=== PATIENT | male | born 1960 | race Caucasian/White ===

== ENCOUNTER 2023-12-03 12:33 | Emergency (ER) | payer SELFPAY ==
[2023-12-03 12:38] VITALS: BP 139/92; PULSE 116; RESP 17; TEMP 36.6; O2SAT 98; BMI 31.9
--- NOTE | 2023-12-03 12:40 | ED_ITS ---
HPI - General Adult General Chief complaint: General Medical Stated complaint: Cough/Congestion Time Seen by Provider: 12/03/23 13:52 Source: patient Mode of arrival: ambulatory Limitations: no limitations History of Present Illness ED Provider: VICTOR MANUEL BALL PA-C HPI narrative: 63 year old male with no significant pmhx presents to the ED today for evaluation of congestion, sneezing, dry cough, and bilateral eye irritation x6 days. Admits to gritty sensation to bilateral eyes with clear/watery discharge. No morning crusting. No vision changes. No eye pain or pain with eye movements. He does not wear corrective lenses. Reports symptoms began after he spent the weekend outside moving hay in a very jo[place] environment. He was seen at walk in clinic on Friday (4 days ago) and prescribed erythromycin which he has been applying with little improvement. He has also been taking Claritin D which provides temporary resolution. Denies known sick contacts. Denies fever, chills, sore throat, ear pain, sputum production, shortness of breath, chest pain. Related Data Previous Rx's ?Medication ?Instructions ?Recorded azelastine 0.05 % eye drops 1 drp ophthalmic (eye) BID 1 week 12/03/23 #6 mL benzonatate 100 mg capsule 100 mg PO BID PRN cough #20 caps 12/03/23 Allergies Allergy/AdvReac Type Severity Reaction Status Date / Time amoxicillin [AMOXICILLIN] Allergy Mild BODY Verified 12/03/23 12:42 REDNESS Seasonal Allergies Allergy Unknown Verified 12/03/23 12:42 Review of Systems Review of Systems: Constitutional: No fever, chills, fatigue, night sweats, weight changes ENT/Mouth: No ear pain, hearing loss, nasal congestion, sinus pain, rhinorrhea, sore throa Eyes: No eye pain, swelling, vision changes, +redness, +discharge Cardio: No chest pain, palpitations, [place], orthopnea, peripheral edema Pulm: No SOB,sputum, wheezing, dyspnea, hemoptysis, +cough GI: No nausea, vomiting, hematemesis, abdominal pain, diarrhea, constipation, hematochezia, melena : No irregular bleeding, dysuria, frequency, urgency, hesitancy, hematuria, flank pain, urinary flow changes, urinary incontinence or retention MSK: No back pain, neck pain, joint pain, myalgias Skin: No lesions, rashes Neuro: No weakness, numbness, paresthesias, LOC, dizziness, headache Psych: No anxiety/panic, depression, SI/HI, AH/VH All other systems reviewed and are negative. [facility] Past Medical History Attestation statement: The following information was validated with the patient. Source: old records reviewed and nursing notes reviewed Social History Social History Advance Directives: No Advance Directives Information Provided: Yes Do you have a plan to hurt others: No Plan Physical Exam ED Vital Signs: Vital Signs - 24 hr 12/03/23 12:38 12/03/23 13:56 12/03/23 14:13 Temperature 98 F 98.5 F 98.5 F Pulse Rate 116 H 97 97 Respiratory Rate 17 17 17 Blood Pressure 139/92 H 124/86 124/86 Pulse Oximetry 98 97 97 Oxygen Delivery Method Room Air Room Air Room Air BMI result Body Mass Index 31.9 Patient initially tachycardic, now resolved. Vitals otherwise WNL. Const General: cooperative, healthy appearing, comfortable and no acute distress Orientation/consciousness: patient oriented x3 Limitations: no limitations HENMT Other: + posterior oropharynx without erythema or edema. No tonsillar exudates or peritonsillar masses. Uvula midline. Controlling secretions. Speaking complete sentences. Head: Yes normal to inspection Ears: hearing grossly normal bilaterally General nose exam: Normal external nose present Face and sinus: Yes normal facial exam and Yes sinuses nontender Mouth: Normal oral and palatal mucosa present Eyes Other: + conjunctival injection bilaterally. Minimal amount of chemosis. Cobblestoning noted to bilateral lower eyelids. Excessive tearing noted. No purulent discharge or crusting. No enophthalmos or exophthalmos. EOMs intact without pain or entrapment. + IOP OD 19, IOP OS 18. No reuptake on fluorescein/tetracaine examination. Neck Neck: Yes normal visual inspection, Yes full ROM and Yes no lymphadenopathy Resp Effort & Inspection: normal respiratory effort and able to speak in complete sentences Auscultation: clear to auscultation bilaterally Cardio Rate: regular rate Rhythm: regular rhythm Skin General skin exam: no rashes or lesions noted Neuro General: patient oriented x3 Course Course Course Narrative: 1430-- Patient's physical exam is consistent with allergic conjunctivitits. Cetirizine eyedrops sent to pharmacy for treatment. Will also send Tessalon Perles for cough. Patient has remained stable throughout ED visit today. Discussed worrisome signs and symptoms and when to return to the ED. All questions answered at this time. Patient is agreeable with disposition and stable for discharge. 1625-- received call from pharmacy that they do not have cetirizine eyedrops in stock. azelastine drop sent. Medications Administered Discontinued Medications Generic Name Dose Route Start Last Admin Trade Name Boogie PRN Reason Stop Dose Admin Fluorescein Sodium 1 strip 12/03/23 12:43 12/03/23 13:55 Fluorescein Sodium Strip EYE-BOTH 12/03/23 12:44 1 strip ONCE ONE Administration Tetracaine HCl 1 drop 12/03/23 12:43 12/03/23 13:55 Tetracaine Hcl/Pf 0.5% Oph Ingris 4 Ml Drops EYE-BOTH 12/03/23 12:44 1 drop ONCE ONE Administration Medical Decision Making Medical Decision Making [facility] Narrative: 63 year old male with no significant pmhx presents to the ED today for evaluation of congestion, sneezing, dry cough, and bilateral eye irritation x6 days. Patient initially tachy and hypertensive. Vitals now wnl. Patient is nontoxic-appearing and in no acute distress. On exam, conjunctival injection bilaterally. Minimal amount of chemosis. Cobblestoning noted to bilateral lower eyelids. Excessive tearing noted. No purulent discharge or crusting. No enophthalmos or exophthalmos. EOMs intact without pain or entrapment. IOP OD 19, IOP OS 18. No reuptake on fluorescein/tetracaine examination to indicate abrasion or foreign body. posterior oropharynx without erythema or edema. No tonsillar exudates or peritonsillar masses. Uvula midline. Controlling secretions. Speaking complete sentences. Lungs CTA bilaterally. No wheezes. Actively coughing on exam. Differential diagnosis includes allergic conjunctivitis, viral conjunctivitis, corneal abrasion, corneal foreign body, seasonal allergies, viral syndrome. Unlikely glaucoma, globe rupture, iritis, Plan for viral serology, fluorescein/tetracaine examination, disposition. Differential Diagnosis Differential Diagnoses: The differential diagnosis associated with the presentation includes as above. Admission/Observation Not indicated. Lab Data [facility] Lab Attestation statement: I reviewed the patient's lab results. as above. Labs: Lab Results 12/03/23 Range/Units 12:48 Influenza Type A (PCR) NEGATIVE (Negative) Influenza Type B (PCR) NEGATIVE (Negative) RSV RNA Qual (PCR) NEGATIVE (Negative) SARS-CoV-2 RNA (RT-PCR) NEGATIVE (Negative) Prescription Management I considered prescription management with: Other (azelastine eyedrops) Chronic Conditions Patient?s care impacted by: Other (Seasonal allergies) Social Determinants Patient?s care significantly limited by Social Determinants of Health including: Other Social Determinant of Health Critical Care Time Critical Care Time Critical Care Time: No Discharge Plan Discharge Clinical Impression: Acute allergic conjunctivitis Qualifiers: Laterality: bilateral Qualified Code(s): H10.13 - Acute atopic conjunctivitis, bilateral Patient Disposition: Home, Self-Care Instructions: How to Use Eye Drops (ED), Conjunctivitis (ED) Additional Instructions: You tested negative for covid, flu, and rsv. Your exam is consistent with allergic conjunctivits. Cetirizine eye drops have been sent to your pharmacy for you to take for the next week. Apply 1 drop into eyes twice daily, 8 hours apart. Do not use longer than 2 weeks as this can cause rebound reaction, causing your eyes to become more red/ painful. Follow up with eye doctor. You have been provided a referral. You may call them to make an appointment. they will not call you. Additionally, Ismael Oron[place] have been sent to your pharmacy for you to take as needed for cough. Return new or worsening symptoms. In the case of an emergency call 911. Prescriptions: New benzonatate 100 mg capsule 100 mg PO BID PRN (Reason: cough) Qty: 20 0RF azelastine 0.05 % drops 1 drp ophthalmic (eye) BID 7 Days Qty: 6 0RF Referrals: Pérez Reyes MD [Primary Care Provider] - Sravan Soto [Physician] - Interventions: ED Discharge Assessment Last Done: 12/03/23 14:13 Discharge Date/Time: 12/03/23 14:14 Print Language: Kenyan
[2023-12-03 13:30] LABS: Influenza A PCR NEGATIVE (Negative); Influenza B PCR NEGATIVE (Negative); Resp Syncy Virus RNA Qual PCR NEGATIVE (Negative); SARS COV2 PCR INHOUSE NEGATIVE (Negative)
[2023-12-03] MEDS: Fluorescein Sodium STRIP 1 STRIP EYE-BOTH (13:55)
[2023-12-03] MEDS: Tetracaine HCl/PF 0.5% Oph Sol 4 ML DROPS 1 DROP EYE-BOTH (13:55)
[2023-12-03 13:56] VITALS: BP 124/86; PULSE 97; RESP 17; TEMP 36.9; O2SAT 97
[2023-12-03 14:13] VITALS: BP 124/86; PULSE 97; RESP 17; TEMP 36.9; O2SAT 97
== END 2023-12-03 14:14 | disposition home or self-care (01) ==
PROVIDERS: Physician Assistant Medical; Emergency Provider Emergency Medicine; PCP Internal Medicine
DX: H10.13 Acute atopic conjunctivitis, bilateral (principal); R05.9 Cough, unspecified; R09.89 Other specified symptoms and signs involving the circulatory and respiratory systems; Z03.818 Encounter for observation for suspected exposure to other biological agents ruled out
CPT/HCPCS: 0241U; 99282; 99283

== ENCOUNTER 2024-01-30 07:59 | Emergency (ER) | payer SELFPAY ==
--- NOTE | ~2024-01-30 | US_ITS ---
EXAMINATION: US TRIPLEX LOWER EXTREMITY, RIGHT CLINICAL INFORMATION: Swelling, erythema, pain. COMPARISON: None available. TECHNIQUE: Color-flow triplex imaging with spectral analysis and compression Doppler were performed on the right lower extremity. FINDINGS: Respiratory variation, normal compression and augmented flow are noted throughout the right lower extremity. The visualized common femoral vein, superficial femoral vein, profunda femoral vein, popliteal vein and midcalf posterior tibial venous segments show no evidence of deep venous thrombosis. The peroneal veins were not seen. There is no Martinez's cyst. Enlarged lymph nodes in the right inguinal region with overall a nonaggressive appearing morphology including smooth contour, preserved fatty tolu and normal cortical thickness, most likely reactive in nature largest measuring 2.3 x 0.8 x 1.7 cm. US/US venous duplex LE RT IMPRESSION: 1. No evidence of deep venous thrombosis involving the right lower extremity with the caveat of nonvisualization of the peroneal veins. 2. Enlarged but most likely reactive right inguinal lymph nodes. Attention on follow-up at future examinations recommended. Electronically signed by: Sonja Valdez MD 01/30/2024 11:11 AM EDT
[2024-01-30 08:03] VITALS: BP 145/86; PULSE 110; RESP 16; TEMP 36.9; O2SAT 97; BMI 31.5
[2024-01-30 08:35] LABS: MANUAL DIFF FLAG NO
[2024-01-30 08:37] LABS: Basophils Percent Auto 0.3 % (0-2); Eosinophils Percent Auto 0.3 % (0-4); Hematocrit 43.4 % (42.0-52.0); Hemoglobin 14.9 g/dl (14.0-18.0); Imm Gran Abs Auto 0.05 X10*3/uL (0.00-0.03); Imm Gran Pct Auto 0.4 % (0.0-0.4); Lymphocytes Absolute Auto 1.4 X10*3/uL (1.2-4.9); Lymphocytes Percent Auto 12.1 % (20-40); Mean Corpuscular HGB Conc 34.3 g/dl (31.0-36.0); Mean Corpuscular Hemoglobin 30.2 pg (27.0-33.0); Mean Corpuscular Volume 87.9 fL (80.0-98.0); Mean Platelet Volume 8.2 fL (9.4-12.4); Monocytes Absolute Auto 0.8 X10*3/uL (0.1-1.2); Monocytes Percent Auto 6.6 % (2-11); Neutrophils Absolute Auto 9.6 x10*3/uL (2.0-8.3); Neutrophils Percent Auto 80.3 % (45-73); Platelet Count 168 X10*3/uL (160-400); Red Blood Count 4.94 X10*6/uL (4.60-5.80); White Blood Count 11.9 X10*3/uL (4.8-10.8)
[2024-01-30 08:56] LABS: Alanine Aminotransferase 24 U/L (0-40); Albumin Level 4.2 g/dL (3.5-5.0); Alkaline Phosphatase 50 U/L (39-117); Anion Gap 11 (12-20); Aspartate Amino Transferase 15 U/L (5-37); Bilirubin Total 0.8 mg/dL (0.0-1.0); Blood Urea Nitrogen 11 mg/dL (9-16); Calcium 9.9 mg/dL (8.4-10.2); Carbon Dioxide 26 mmol/L (22-29); Chloride 103 mmol/L (96-108); Creatinine Clr Calc Pharmacy 66.2; Estimated Glomerular Filt Rate > 60; Glucose Random 125 mg/dL (60-115); Sodium 136 mmol/L (135-145); Total Protein 7.9 g/dL (6.5-8.0)
--- NOTE | 2024-01-30 09:18 | ED.GENADULT ---
HPI - General Adult General Chief complaint: Extremity Problem Stated complaint: r leg pain quest cellulitis Time Seen by Provider: 01/30/24 09:12 Source: patient Mode of arrival: ambulatory Limitations: no limitations History of Present Illness ED Provider: Enid Melendez PA-C HPI narrative: Patient is a 63 year old assigned male at with no reported medical history presenting to the emergency department today with right lower leg swelling / redness. Patient states that he has a history of cellulitis and is concerned it has returned. Patient states that it has been worsening over the last few days and spreading up his leg. Patient states that he has no history of blood clots and is not on any anti-coagulation medications. Patient denies any dizziness, lightheadedness, abdominal pain, nausea, vomiting, fever, chills, blurry vision, double vision, loss of vision, chest pain, difficulty breathing, shortness of breath, back pain, night sweats, pain with urination, increased urinary frequency, increased urinary urgency, blood in his urine or stool, syncope or a near syncopal episode, recent trauma or falls, bowel incontinence, bladder incontinence, or any other complaints at this time. Onset (ago): day(s) Location: right and lower extremity Severity: mild Relieving factors: none Exacerbating factors: none Associated symptoms: denies other symptoms Treatments prior to arrival: none Related Data Previous Rx's ?Medication ?Instructions ?Recorded azelastine 0.05 % eye drops 1 drp ophthalmic (eye) BID 1 week 12/03/23 #6 mL benzonatate 100 mg capsule 100 mg PO BID PRN cough #20 caps 12/03/23 cephalexin 500 mg capsule 500 mg PO Q6H 7 days #28 caps 01/30/24 doxycycline hyclate 100 mg tablet 100 mg PO BID 7 days #14 tabs 01/30/24 Allergies Allergy/AdvReac Type Severity Reaction Status Date / Time amoxicillin [AMOXICILLIN] Allergy Mild BODY Verified 01/30/24 08:05 REDNESS Seasonal Allergies Allergy Unknown Verified 01/30/24 08:05 Review of Systems Constitutional: Constitutional: Reports no additional constitutional complaints, Denies chills, Denies fever(s) and Denies night sweats Eyes: Eyes: Reports no additional eye complaints, Denies blurry vision, Denies change in vision, Denies diplopia, Denies eye discharge, Denies loss of vision and Denies eye pain ENT: Denies dizziness Cardiovascular: Cardiovascular: Reports no additional cardiovascular complaints, Denies chest pain, Denies lightheadedness, Denies Loss of Consciousness and Denies dyspnea Respiratory: Respiratory: Reports no additional respiratory complaints and Denies dyspnea Gastrointestinal: Gastrointestinal: Reports no additional gastrointestinal complaints, Denies abdominal pain, Denies melena, Denies hematochezia, Denies change in bowel habits and Denies change in stool character Genitourinary: Genitourinary: Reports no additional male genitourinary complaints, Denies hematuria, Denies oliguria, Denies difficulty urinating, Denies dysuria, Denies urinary frequency, Denies urinary hesitancy, Denies urinary incontinence and Denies urinary urgency Musculoskeletal: Musculoskeletal: Reports no additional musculoskeletal complaints, Denies numbness and Denies tingling Comments: right lower leg pain, redness, and swelling Neurologic: Denies dizziness, Denies loss of vision, Denies numbness and Denies tingling Psychiatric: Psychiatric: Reports no additional psychiatric complaints Endocrine: Endocrine: Reports no additional endocrine complaints Hematologic/Lymphatic: Hematologic/Lymphatic: Reports no additional hematologic/lymphatic complaints Allergic/Immunologic: Allergic/Immunologic: Reports no additional allergic/immunologic complaints PMFSH Past Medical History Attestation statement: The following information was validated with the patient. Source: old records reviewed and nursing notes reviewed Social History Social History Advance Directives: No Advance Directives Information Provided: Yes Do you have a plan to hurt others: No Plan Physical Exam ED Vital Signs: Vital Signs - 24 hr 01/30/24 08:03 01/30/24 10:39 Temperature 98.5 F 98.5 F Pulse Rate 110 H 110 H Respiratory Rate 16 16 Blood Pressure 145/86 H 145/86 H Pulse Oximetry 97 97 Oxygen Delivery Method Room Air Room Air BMI result Body Mass Index 31.5 Const General: cooperative, no acute distress, alert and awake Nutritional Appearance: well nourished Orientation/consciousness: patient oriented x3 Limitations: no limitations HENMT Head: Yes normal to inspection and Yes atraumatic Ears: hearing grossly normal bilaterally and external ears normal General nose exam: Normal external nose present, no nasal discharge noted and no epistaxis Face and sinus: Yes normal facial exam, No abrasion and No laceration Mouth: Normal oral and palatal mucosa present, no drooling and no muffled voice Eyes General: appearance normal, both eyes and all related structures Periorbital: periorbital findings normal Eyelids: Yes eyelids normal Conjunctivae: conjunctivae normal Pupils: Equal, round and reactive pupils present EOM: EOMs intact bilaterally Neck Neck: Yes normal visual inspection, Yes full ROM and Yes no lymphadenopathy Chest Chest palpation & inspection: normal inspection of the chest Resp Effort & Inspection: normal respiratory effort and able to speak in complete sentences GI Inspection: Yes normal to inspection Neuro General: patient oriented x3 and moves all extremities Cranial nerves: Yes Equal, round and reactive pupils present Cognition (Neuro): normal cognition Extrem Other: erythema, warmth, and swelling present to the dorsal right lower leg General: Yes full ROM and Yes capillary refill normal Psych Appearance: grossly normal Mental Status: mental status grossly normal Affect: normal affect Attitude: cooperative Thought process: Normal thought process present Thought content: Normal thought content present Insight: Good insight present (Psych) Medical Decision Making Medical Decision Making MDM Narrative: Patient is a 63 year old assigned male at with no reported medical history presenting to the emergency department today with right lower leg redness / warmth / swelling. Patient's physical exam was as noted in the physical exam portion of this note. Patient's blood work was unremarkable. Patient's right lower leg US showed no acute process. I explained my physical exam findings as well as all test results to the patient. I answered all questions asked by the patient. I stressed the importance of the patient taking his medication as directed (either prescribed or as the over the counter packaging recommends). I stressed the importance of the patient following up with his primary care provider. I stressed the importance of the patient returning to the emergency department immediately if his symptoms were to worsen or if he were to develop any dizziness, shortness of breath, difficulty breathing, chest pain, blurry vision, loss of vision, nausea, vomiting, abdominal pain, fever, chills, back pain, or any other complaints. Patient verbalized agreement and understanding with this treatment plan and discharge. Differential Diagnosis Differential Diagnoses: The differential diagnosis associated with the presentation includes Right lower extremity cellulitis DVT Phlebitis Admission/Observation Consideration of admission/observation: Escalation of care including admission/observation considered Patient would have been admitted to the hospital had his work up had any findings where hospital admission was appropriate and his clinical presentation warranted hospital admission. Lab Data [facility] Lab Attestation statement: I reviewed the patient's lab results. My interpretation of these results are in the [facility] Rationale portion of this note. 01/30/24 08:29 01/30/24 08:29 Labs: Lab Results 01/30/24 Range/Units 08:29 WBC 11.9 H (4.8-10.8) X10*3/uL RBC 4.94 (4.60-5.80) X10*6/uL Hgb 14.9 (14.0-18.0) g/dl Hct 43.4 (42.0-52.0) % MCV 87.9 (80.0-98.0) fL MCH 30.2 (27.0-33.0) pg MCHC 34.3 (31.0-36.0) g/dl RDW 14.0 (11.0-16.0) % Plt Count 168 (160-400) X10*3/uL MPV 8.2 L (9.4-12.4) fL Immature Gran % (Auto) 0.4 (0.0-0.4) % Neut % (Auto) 80.3 H (45-73) % Lymph % (Auto) 12.1 L (20-40) % Brooke % (Auto) 6.6 (2-11) % Eos % (Auto) 0.3 (0-4) % Baso % (Auto) 0.3 (0-2) % Lymph # (Auto) 1.4 (1.2-4.9) X10*3/uL Brooke # (Auto) 0.8 (0.1-1.2) X10*3/uL Eos # (Auto) 0.0 (0.0-0.4) X10*3/uL Baso # (Auto) 0.0 (0.0-0.2) X10*3/uL Abs Immat Gran (auto) 0.05 H (0.00-0.03) X10*3/uL Absolute Neuts (auto) 9.6 H (2.0-8.3) x10*3/uL Absolute Nucleated RBC 0.000 (0.0-0.012) X10*3/uL Nucleated RBC % (auto) 0.0 (0.0-0.2) /100WBC Sodium 136 (135-145) mmol/L Potassium 4.0 (3.3-5.1) mmol/L Chloride 103 (96-108) mmol/L Carbon Dioxide 26 (22-29) mmol/L Anion Gap 11 L (12-20) BUN 11 (9-16) mg/dL Creatinine 1.22 (0.5-1.4) mg/dL Estim Creat Clear Calc 66.2 Estimated GFR > 60 Random Glucose 125 H (60-115) mg/dL Calcium 9.9 (8.4-10.2) mg/dL Total Bilirubin 0.8 (0.0-1.0) mg/dL AST 15 (5-37) U/L ALT 24 (0-40) U/L Alkaline Phosphatase 50 (39-117) U/L Total Protein 7.9 (6.5-8.0) g/dL Albumin 4.2 (3.5-5.0) g/dL Independent Interpretation I performed an independent interpretation of an: Ultrasound Interpretation: My interpretation is in agreement with the radiologist's impression of this imaging study. EXAMINATION: US TRIPLEX LOWER EXTREMITY, RIGHT CLINICAL INFORMATION: Swelling, erythema, pain. COMPARISON: None available. TECHNIQUE: Color-flow triplex imaging with spectral analysis and compression Doppler were performed on the right lower extremity. FINDINGS: Respiratory variation, normal compression and augmented flow are noted throughout the right lower extremity. The visualized common femoral vein, superficial femoral vein, profunda femoral vein, popliteal vein and midcalf posterior tibial venous segments show no evidence of deep venous thrombosis. The peroneal veins were not seen. There is no Martinez's cyst. Enlarged lymph nodes in the right inguinal region with overall a nonaggressive appearing morphology including smooth contour, preserved fatty tolu and normal cortical thickness, most likely reactive in nature largest measuring 2.3 x 0.8 x 1.7 cm. US/US venous duplex LE RT IMPRESSION: 1. No evidence of deep venous thrombosis involving the right lower extremity with the caveat of nonvisualization of the peroneal veins. 2. Enlarged but most likely reactive right inguinal lymph nodes. Attention on follow-up at future examinations recommended. Electronically signed by: Sonja Valdez MD 01/30/2024 11:11 AM EDT RP Dictated By: Heydi Valdez Signed By: Electronically signed by Heydi Valdez 01/30/24 1111 Radiology Impression Discussion of test interpretation with radiology: I have reviewed the radiologist's reading. Prescription Management I considered prescription management with: Antibiotic (patient prescribed antibiotics for right lower extremity cellulitis) Discharge Plan Discharge Clinical Impression: Cellulitis Patient Disposition: Home, Self-Care Instructions: Cellulitis (DC) Additional Instructions: Follow up with your primary care provider. Return to the emergency department immediately if your symptoms worsen or if you develop any dizziness, shortness of breath, difficulty breathing, chest pain, blurry vision, loss of vision, nausea, vomiting, abdominal pain, fever, chills, back pain, or any other complaints. Prescriptions: New cephalexin 500 mg capsule 500 mg PO Q6H 7 Days Qty: 28 0RF doxycycline hyclate 100 mg tablet 100 mg PO BID 7 Days Qty: 14 0RF No Action benzonatate 100 mg capsule 100 mg PO BID PRN (Reason: cough) Qty: 20 0RF azelastine 0.05 % drops 1 drp ophthalmic (eye) BID 7 Days Qty: 6 0RF Referrals: Pérez Reyes MD [Primary Care Provider] - Interventions: ED Discharge Assessment Last Done: 01/30/24 10:39 Discharge Date/Time: 01/30/24 10:40 Print Language: Swedish
[2024-01-30 10:39] VITALS: BP 145/86; PULSE 110; RESP 16; TEMP 36.9; O2SAT 97
== END 2024-01-30 10:40 | disposition home or self-care (01) ==
PROVIDERS: Emergency Provider Emergency Medicine; PCP Internal Medicine
DX: L03.115 Cellulitis of right lower limb (principal); M79.661 Pain in right lower leg
CPT/HCPCS: 36415; 80053; 85025; 93971; 99282; 99284